=== PATIENT | female | born 1970 | race African-American/Black ===

== ENCOUNTER 2019-03-10 12:28 | Emergency (ER) | payer MEDICAID ==
[~2019-03-10] VITALS: Ht 177.8 cm; Wt 88.5 kg
[2019-03-10 12:29] VITALS: BP 144/91
--- NOTE | 2019-03-10 12:35 | NUR ---
ED Nurse Note: Patient walked into ED from home accompanied with her partner, due to "alcohol withrawal" symptoms, patient appears to be shaky, reports chest pain patient reports the last time she drank was this morning, she had 1 cup of wine. patient is alert awake x4 ambulatory steady gait, breathing unlabored and even.
[2019-03-10] MEDS ORDERED: XANAX0.25 MG ORAL (12:40)
--- NOTE | 2019-03-10 13:08 | Emergency Room Report ---
History of Present Illness General Chief Complaint: General Complaint Source: Patient Present Illness HPI 48-year-old female presents to the emergency department complaining of alcohol withdrawal symptoms. Patient reports that she drinks alcohol regularly describing 3-4 bottles of wine daily x2 weeks. Patient reports prior to that she was sober for approximately 5 to 7 months when she self detoxed from alcohol dependency for prior longer duration of drinking. Patient reports need for hospitalization upon detox as well as history of seizures. Patient denies heart or liver conditions. Warts last glass of wine was 10 AM this morning. Psychiatric history includes anxiety she denies SI/HI, depression, dale, hallucinations, delusions. Reports her current symptoms consist of heightened anxiety, dizziness, hot and cold flashes and intermittent palpitations with chest tightness. States that she is regularly prescribed Xanax as needed for her anxiety symptoms. She is currently out of that medication. Pt. is accompanied by her partner whom endorses the details of HPI and was caring for pt. when she self d/c'd cold turkey 7 months ago. Pt. denies ever going through a detox program or attending support groups. Pt. takes Metoprolol for HTN. Allergies: Coded Allergies: No Known Allergies (Unverified , 03/10/19) Patient History Past Medical History: see triage record, HTN Past Surgical History: none Pertinent Family History: none Social History: Reports: alcohol use - ETOH Dependence Last Menstrual Period: unk-premenopausal Now: No Reviewed Nursing Documentation: PMH: Agreed; PSxH: Agreed Nursing Documentation-PM Past Medical History: No History, Except For History Of Psychiatric Problem: Yes - etoh abuse Review of Systems All Other Systems: negative except mentioned in HPI Physical Exam Vital Signs Date Time Temp Pulse Resp B/P (MAP) Pulse Ox O2 Delivery O2 Flow Rate FiO2 03/10/19 12:29 99.3 72 18 144/91 (108) 98 Room Air Sp02 EP Interpretation: reviewed, normal General Appearance: alert, GCS 15, non-toxic, mild distress Head: normocephalic, atraumatic Eyes: bilateral eye normal inspection, bilateral eye PERRL ENT: hearing grossly normal, normal voice Neck: full range of motion Respiratory: chest non-tender, lungs clear, normal breath sounds, no respiratory distress, no wheezing, speaking full sentences Cardiovascular #1: regular rate, rhythm, normal capillary refill Gastrointestinal: normal bowel sounds, non tender, soft Genitourinary: normal inspection Musculoskeletal: back normal, gait/station normal, normal range of motion, non- tender Neurologic: alert, oriented x3, responsive, motor strength/tone normal, sensory intact, speech normal, grossly normal Psychiatric: judgement/insight normal, no suicidal/homicidal ideation, no delusions, anxious, other - Pt. is restless. Skin: no rash, warm/dry Lymphatic: no adenopathy Medical Decision Making PA Attestation Dr. Mercer is my supervising Physician whom patient management has been discussed with. Diagnostic Impression: Primary Impression: EtOH dependence Qualified Codes: F10.20 - Alcohol dependence, uncomplicated Additional Impression: Alcohol withdrawal syndrome Qualified Codes: F10.230 - Alcohol dependence with withdrawal, uncomplicated ER Course 48-year-old female presents to the emergency department complaining of alcohol withdrawal symptoms. Patient reports that she drinks alcohol regularly describing 3-4 bottles of wine daily x2 weeks. Patient reports prior to that she was sober for approximately 5 to 7 months when she self detoxed from alcohol dependency for prior longer duration of drinking. Patient reports need for hospitalization upon detox as well as history of seizures. Patient denies heart or liver conditions. Warts last glass of wine was 10 AM this morning. Psychiatric history includes anxiety she denies SI/HI, depression, dale, hallucinations, delusions. Reports her current symptoms consist of heightened anxiety, dizziness, hot and cold flashes and intermittent palpitations with chest tightness. States that she is regularly prescribed Xanax as needed for her anxiety symptoms. She is currently out of that medication. Pt. is accompanied by her partner whom endorses the details of HPI and was caring for pt. when she self d/c'd cold turkey 7 months ago. Pt. denies ever going through a detox program or attending support groups. Ddx considered but are not limited to ETOH, Trauma, Syncope, dementia, OD, delirium tremens to name a few Vital signs: are WNL, pt. is afebrile H&PE are most consistent with ETOH dependency with abrupt d/c. CIWA of 11. ORDERS: -CBC: Pancytopenia -CMP: Electrolytes okay, normal renal function, mild elevation in AST at 40 -ETOH serum: 48 -UDS: Negative ED INTERVENTIONS: -25 mg Librium p.o. Reassessment patient reports her symptoms have resolved. re-calculated CIWA score of 6 During visit pt. has responsible constitution party (partner) who is in the medical field and endorses that she will stay with the pt. at home and observe her and help dispense medication as needed. Both pt. and responsible constitution party agree therapy such as AA is necessary and agree to try going. They are given a copy of local medical detox programs and outpatient detox programs as well as AA information. DISCHARGE: At this time pt. is stable for d/c to home. Will provide printed patient care instructions, and any necessary prescriptions. Care plan and follow up instructions have been discussed with the patient prior to discharge. Labs Test 03/10/19 13:20 White Blood Count 4.4 K/UL (4.8-10.8) Red Blood Count 4.46 M/UL (4.20-5.40) Hemoglobin 10.9 G/DL (12.0-16.0) Hematocrit 36.8 % (37.0-47.0) Mean Corpuscular Volume 82 FL (80-99) Mean Corpuscular Hemoglobin 24.4 PG (27.0-31.0) Mean Corpuscular Hemoglobin Concent 29.6 G/DL (32.0-36.0) Red Cell Distribution Width 19.3 % (11.6-14.8) Platelet Count 305 K/UL (150-450) Mean Platelet Volume 4.7 FL (6.5-10.1) Neutrophils (%) (Auto) 47.5 % (45.0-75.0) Lymphocytes (%) (Auto) 36.4 % (20.0-45.0) Monocytes (%) (Auto) 12.0 % (1.0-10.0) Eosinophils (%) (Auto) 1.6 % (0.0-3.0) Basophils (%) (Auto) 2.5 % (0.0-2.0) Urine HCG, Qualitative Negative (NEGATIVE) Sodium Level 145 MMOL/L (136-145) Potassium Level 4.7 MMOL/L (3.5-5.1) Chloride Level 107 MMOL/L (98-107) Carbon Dioxide Level 25 MMOL/L (21-32) Anion Gap 14 mmol/L (5-15) Blood Urea Nitrogen 12 mg/dL (7-18) Creatinine 0.9 MG/DL (0.55-1.30) Estimat Glomerular Filtration Rate > 60 mL/min (>60) Glucose Level 98 MG/DL (74-106) Calcium Level 8.9 MG/DL (8.5-10.1) Total Bilirubin 0.5 MG/DL (0.2-1.0) Aspartate Amino Transf (AST/SGOT) 40 U/L (15-37) Alanine Aminotransferase (ALT/SGPT) 29 U/L (12-78) Alkaline Phosphatase 53 U/L (46-116) Total Protein 8.0 G/DL (6.4-8.2) Albumin 3.6 G/DL (3.4-5.0) Globulin 4.4 g/dL Albumin/Globulin Ratio 0.8 (1.0-2.7) Urine Opiates Screen Negative (NEGATIVE) Urine Barbiturates Screen Negative (NEGATIVE) Phencyclidine (PCP) Screen Negative (NEGATIVE) Urine Amphetamines Screen Negative (NEGATIVE) Urine Benzodiazepines Screen Negative (NEGATIVE) Urine Cocaine Screen Negative (NEGATIVE) Urine Marijuana (THC) Screen Negative (NEGATIVE) Serum Alcohol 48 mg/dL EKG Diagnostic Results EP Interpretation: Dr. Mercer Rate: normal - 61 BPM Rhythm: NSR ST Segments: no acute changes ASA given to the pt in ED: No PA Scribe Text This Interpretation was scribed by FRANKO Muller. Last Vital Signs Date Time Temp Pulse Resp B/P (MAP) Pulse Ox O2 Delivery O2 Flow Rate FiO2 03/10/19 12:51 72 18 Room Air 03/10/19 12:29 99.3 144/91 98 Disposition: HOME, SELF-CARE Condition: Stable Scripts Chlordiazepoxide Hcl* (LIBRIUM*) 10 Mg Capsule 10 MG ORAL PRN PRN for ETOH symptoms, #11 CAP 0 Refills Longer-acting benzodiazepine: Chlordiazepoxide (Librium) Taper Day 1 - 10 mg every 6 to 12 hours (only if having withdraw symptoms) Day 2 - 10 mg every 6 hours (only if having withdraw symptoms) Day 3 - 10 mg twice a day Day 4- 10 mg at Night DO NOT TAKE IF ALCOHOL IS IN YOUR SYSTEM Prov: Chelo Muller 03/10/19 Departure Forms: Return to Work Return to Work Date: Mar 16, 2019 Work Restrictions: None Other Restrictions: May return Sooner if Symptoms have resolved. Return to Full Activity: Mar 16, 2019 Patient Instructions: Chlordiazepoxide capsules Additional Instructions: Longer-acting benzodiazepine: Chlordiazepoxide (Librium) Taper Day 1 - 25 mg every 6 to 12 hours (only if having withdraw symptoms) Day 2 - 25 mg every 6 hours (only if having withdraw symptoms) Day 3 - 25 mg twice a day Day 4- 25mg at Night Contact provided resources for group support, therapy and if more formal institution is required. Discharge DO NOT TAKE IF ALCOHOL IS IN YOUR SYSTEM Take medications as directed. Follow up with a Primary Care Provider in 3-5 days, even if your symptoms have resolved. --Please review list of primary care clinics, if you do not already have a primary care provider Return sooner to ED if new symptoms occur, or current symptoms become worse. Do not drink alcohol, drive, or operate heavy machinery while taking LIBRIUM as this may cause drowsiness. - Please note that this Emergency Department Report was dictated using Satellogiccask maker technology software, occasionally this can lead to erroneous entry secondary to interpretation by the dictation equipment. Chelo Muller Mar 10, 2019 13:08
[2019-03-10] MEDS ORDERED: chlordiazePOXIDE 25mg Cap ORAL ONE (13:15)
[2019-03-10 13:36] LABS: BASOPHILS % (AUTO) 2.5 % (0.0-2.0); EOSINOPHILS % (AUTO) 1.6 % (0.0-3.0); HEMATOCRIT 36.8 % (37.0-47.0); HEMOGLOBIN 10.9 G/DL (12.0-16.0); LYMPHOCYTES % (AUTO) 36.4 % (20.0-45.0); MEAN CORPUSCULAR VOLUME 82 FL (80-99); NEUTROPHILS % (AUTO) 47.5 % (45.0-75.0); PLATELET COUNT 305 K/UL (150-450); RED BLOOD COUNT 4.46 M/UL (4.20-5.40); RED CELL DISTRIBUTION WIDTH 19.3 % (11.6-14.8); WHITE BLOOD COUNT 4.4 K/UL (4.8-10.8)
[2019-03-10 13:49] LABS: ANION GAP 14 mmol/L (5-15); BLOOD UREA NITROGEN 12 mg/dL (7-18); CALCIUM 8.9 MG/DL (8.5-10.1); CARBON DIOXIDE 25 MMOL/L (21-32); CHLORIDE 107 MMOL/L (98-107); CREATININE 0.9 MG/DL (0.55-1.30); POTASSIUM 4.7 MMOL/L (3.5-5.1); SODIUM 145 MMOL/L (136-145)
[2019-03-10 13:53] LABS: ALANINE AMINOTRANSFERASE 29 U/L (12-78); ALBUMIN 3.6 G/DL (3.4-5.0); ALBUMIN/GLOBULIN RATIO 0.8 (1.0-2.7); ALKALINE PHOSPHATASE 53 U/L (46-116)
[2019-03-10 14:04] LABS: ASPARTATE AMINO TRANSFERASE 40 U/L (15-37)
[2019-03-10 14:35] LABS: BILIRUBIN,TOTAL 0.5 MG/DL (0.2-1.0)
[2019-03-10] MEDS ORDERED: LIBRIUM10 MG ORAL (15:18)
[2019-03-10 15:34] VITALS: BP 144/91
--- NOTE | 2019-03-10 15:35 | NUR ---
ER DISCHARGE NOTE: Patient is cleared to be discharged per RANDA LITTLEJOHN, pt is aox4, on room air, with stable vital signs. pt was given dc and prescription instructions, pt was able to verbalize understanding, pt id band and iv site removed without complications. pt is able to ambulate with steady gait. pt took all belongings.
--- NOTE | 2019-03-11 11:32 | Cardiology Report ---
APPROVED REPORT EKG Measurement Heart [id number] Normal sinus rhythm Normal ECG
== END 2019-03-10 15:34 | disposition home or self-care (01) ==
LOC: EMR 13:35
DX: F10.230 Alcohol dependence with withdrawal, uncomplicated (principal); I10 Essential (primary) hypertension; F41.9 Anxiety disorder, unspecified; D61.818 Other pancytopenia
CPT/HCPCS: 36415; 80053; 80307; 80329; 81025; 85025; 93005; 96360; 99284

== ENCOUNTER 2019-04-15 18:49 | Emergency (ER) | payer MEDICAID ==
[~2019-04-15] VITALS: Ht 177.8 cm; Wt 86.2 kg
[~2019-04-15 18:49] MED LIST: LIBRIUM10 MG ORAL; XANAX0.25 MG ORAL
[2019-04-15 19:00] VITALS: BP 133/91
--- NOTE | 2019-04-15 19:00 | NUR ---
ED Nurse Note: Manuel walked into ED wanting to get a referral for a detox program, patient does not have any pain at time of arrival. patient admits that she is part of an alcoholic anonymous and just drank recently. patient admits to drinking a bottle of tequila 2 days ago. will continue to monitor
[2019-04-15] MEDS ORDERED: METOPROLOL SUCC25 MG ORAL (19:02)
--- NOTE | 2019-04-15 19:53 | Emergency Room Report ---
History of Present Illness General Chief Complaint: General Complaint Source: Patient Present Illness HPI 48 YO Female presents to the ED c/o requesting alcohol detox program resource information, and experiencing nausea and anxiousness after d/c'ing ETOH intake this AM. Pt. w. hx of ETOH dependence .Pt. relapsed 2 days ago at a house warming green party. Pt. denies SI/ HI, hallucinations, agitation, or seizures. Pt. reports drinking 2 bottles of tequila x 2 day binge. Denies drug use. Pt. denies fevers or chills. Denies recent head injury. Denies CP, Palpitations, LOC, AMS, dizziness, Changes in Vision, Sensation, paresthesias, or a sudden severe headache. She denies pain. Denies abdominal symptoms other than nausea. Allergies: Coded Allergies: No Known Allergies (Unverified , 03/10/19) Patient History Past Medical History: see triage record Past Surgical History: none Pertinent Family History: none Last Menstrual Period: 8 months ago Now: No Reviewed Nursing Documentation: PMH: Agreed; PSxH: Agreed Nursing Documentation-PMH Past Medical History: No History, Except For Review of Systems All Other Systems: negative except mentioned in HPI Physical Exam Vital Signs Date Time Temp Pulse Resp B/P (MAP) Pulse Ox O2 Delivery O2 Flow Rate FiO2 04/15/19 18:58 98.2 63 16 133/91 (105) 97 Room Air Sp02 EP Interpretation: reviewed, normal General Appearance: no apparent distress, alert, GCS 15, non-toxic Head: normocephalic, atraumatic Eyes: bilateral eye normal inspection, bilateral eye PERRL ENT: hearing grossly normal, normal voice Neck: full range of motion Respiratory: chest non-tender, lungs clear, normal breath sounds, no wheezing, speaking full sentences Cardiovascular #1: regular rate, rhythm, normal capillary refill Gastrointestinal: normal bowel sounds, non tender, soft, non-distended, no guarding Musculoskeletal: back normal, gait/station normal, normal range of motion, non- tender Neurologic: alert, oriented x3, responsive, motor strength/tone normal, sensory intact, normal gait, speech normal, grossly normal Psychiatric: normal inspection, judgement/insight normal, memory normal, no suicidal/homicidal ideation, no delusions, anxious - very mild anxiousness/ faintly palpable tremor. Skin: no rash Lymphatic: no adenopathy Medical Decision Making PA Attestation Dr. Baltazar is my supervising Physician whom patient management has been discussed with. Diagnostic Impression: Primary Impression: Encounter for medical screening examination Additional Impression: Nausea ER Course 48 YO Female presents to the ED c/o requesting alcohol detox program resource information, and experiencing nausea and anxiousness after d/c'ing ETOH intake this AM. Pt. w. hx of ETOH dependence .Pt. relapsed 2 days ago at a house warming green party. Pt. denies SI/ HI, hallucinations, agitation, or seizures. Pt. reports drinking 2 bottles of tequila x 2 day binge. Denies drug use. Pt. denies fevers or chills. Denies recent head injury. Denies CP, Palpitations, LOC, AMS, dizziness, Changes in Vision, Sensation, paresthesias, or a sudden severe headache. She denies pain. Denies abdominal symptoms other than nausea. Ddx considered but are not limited to acute w/d, psychosis or acute psychiatric emergency, intoxication, OD, SI/HI just to name a few. Vital signs: are WNL, pt. is afebrile - CIWA : 6 H&PE are most consistent with normal MSE, mild anxiousness no significant signs of acute w/d. pt. CIWA of 6 does not warrant more emergent interventions. Pt. is non-toxic in appearance. A& O x 4, no SI/HI ORDERS: none required at this time, the diagnosis is clinical ED INTERVENTIONS: -Zofran PO -D/w pt. will give her alcohol detox program resources again. D/w pt.'s partner symptoms that would indicate prompt return to the ED. DISCHARGE: At this time pt. is stable for d/c to home. Will provide printed patient care instructions, and any necessary prescriptions. Care plan and follow up instructions have been discussed with the patient prior to discharge. Last Vital Signs Date Time Temp Pulse Resp B/P (MAP) Pulse Ox O2 Delivery O2 Flow Rate FiO2 04/15/19 18:58 98.2 63 16 133/91 (105) 97 Room Air Disposition: HOME, SELF-CARE Condition: Stable Scripts Ondansetron Odt* (ZOFRAN ODT*) 4 Mg Tab.rapdis 4 MG BC EVERY 8 HOURS PRN for Nausea & Vomiting, #10 TAB 0 Refills Prov: Chelo Muller 04/15/19 Departure Forms: Return to Work Return to Work Date: Apr 19, 2019 Work Restrictions: None Return to Full Activity: Apr 19, 2019 Patient Instructions: Alcohol Use Disorder Additional Instructions: Take medications as directed. Follow up with a DETOX FACILITY and a Primary Care Provider within 3 days, even if your symptoms have resolved. - Return sooner to ED if new symptoms occur, or current symptoms become worse. - Please note that this Emergency Department Report was dictated using Ampliencestraddle buggy operator technology software, occasionally this can lead to erroneous entry secondary to interpretation by the dictation equipment. Chelo Muller Apr 15, 2019 19:53
[2019-04-15] MEDS ORDERED: ONDANSETRON ODT4 MG BC (19:56)
[2019-04-15 20:15] VITALS: BP 125/88
--- NOTE | 2019-04-15 20:15 | NUR ---
ER DISCHARGE NOTE: Patient is cleared to be discharged per ERMD, pt is aox4, on room air, with stable vital signs. pt was given dc instructions, pt was able to verbalize understanding, pt id band removed without complications. pt is able to ambulate with steady gait. pt took all belongings. Patient was provided a list of detox centers, patient is accompanied by friend
== END 2019-04-15 20:15 | disposition home or self-care (01) ==
LOC: EMR 20:00
DX: R11.0 Nausea (principal); F10.20 Alcohol dependence, uncomplicated
CPT/HCPCS: 99282

== ENCOUNTER 2020-01-19 18:22 | Emergency (ER) | payer MEDICAID ==
[~2020-01-19] VITALS: Ht 177.8 cm; Wt 86.2 kg
[~2020-01-19 18:22] MED LIST changes: +METOPROLOL SUCC25 MG ORAL; +ONDANSETRON ODT4 MG BC
[2020-01-19] MEDS ORDERED: METOPROLOL SUCC50 MG ORAL (18:36)
[2020-01-19] MEDS ORDERED: chlordiazePOXIDE 25mg Cap ORAL ONE (19:15)
[2020-01-19 19:26] LABS: BASOPHILS % (AUTO) 2.5 % (0.0-2.0); HEMOGLOBIN 12.7 G/DL (12.0-16.0); LYMPHOCYTES % (AUTO) 40.2 % (20.0-45.0); MEAN CORPUSCULAR VOLUME 98 FL (80-99); MONOCYTES % (AUTO) 9.5 % (1.0-10.0); NEUTROPHILS % (AUTO) 46.9 % (45.0-75.0); PLATELET COUNT 205 K/UL (150-450); RED BLOOD COUNT 4.18 M/UL (4.20-5.40); RED CELL DISTRIBUTION WIDTH 16.9 % (11.6-14.8); WHITE BLOOD COUNT 5.6 K/UL (4.8-10.8)
[2020-01-19 19:36] LABS: ANION GAP 11 mmol/L (5-15); BLOOD UREA NITROGEN 12 mg/dL (7-18); CALCIUM 7.9 MG/DL (8.5-10.1); CARBON DIOXIDE 26 MMOL/L (21-32); CHLORIDE 107 MMOL/L (98-107); POTASSIUM 4.4 MMOL/L (3.5-5.1); SODIUM 144 MMOL/L (136-145)
[2020-01-19 19:41] LABS: ALANINE AMINOTRANSFERASE 29 U/L (12-78); ALBUMIN 3.9 G/DL (3.4-5.0); ALKALINE PHOSPHATASE 82 U/L (46-116); ASPARTATE AMINO TRANSFERASE 38 U/L (15-37); BILIRUBIN,TOTAL 0.2 MG/DL (0.2-1.0)
[2020-01-19 19:52] VITALS: BP 108/80
[2020-01-19] MEDS ORDERED: LORazepam Inj 2mg/ml 1ml IV ONE (20:15)
[2020-01-19] MEDS ORDERED: LIBRIUM25 MG ORAL (20:32)
[2020-01-19 20:37] VITALS: BP 108/80
--- NOTE | 2020-01-19 22:03 | Emergency Room Report ---
History of Present Illness General Chief Complaint: Alcohol Intoxication Source: Patient Present Illness HPI 49-year-old female presents for evaluation. States that she is going through alcohol withdrawal. States she has been drinking every day for several days now. Last drink was this morning. States she feels shaky. Denies nausea or vomiting. Denies abdominal pain. Denies hearing voices. Denies SI or HI. No other aggravating relieving factors. Denies any other associated symptoms Allergies: Coded Allergies: No Known Allergies (Unverified , 03/10/19) COVID-19 Screening Contact w/high risk pt: No Experienced COVID-19 symptoms?: No COVID-19 Testing performed HOMEOPATHIC DOCTOR: No - 2 days ago COVID-19 Screening: Negative COVID-19 COVID-19 Testing Source: SENIOR WATER/WASTEWATER ENGINEER swab Patient History Past Medical History: psych hx Past Surgical History: none Pertinent Family History: none Social History: Reports: alcohol use; Denies: smoking, drug use Last Menstrual Period: premenopause Now: No Immunizations: UTD Reviewed Nursing Documentation: PMH: Agreed; PSxH: Agreed Nursing Documentation-PMH Past Medical History: No History, Except For Hx Cardiac Problems: Yes - alcohol abuse Hx Hypertension: No Hx Pacemaker: No Hx Asthma: No Hx COPD: No Hx Diabetes: No Hx Cancer: No Hx Gastrointestinal Problems: No Hx Dialysis: No History Of Psychiatric Problem: Yes - Anxiety Hx Neurological Problems: No Hx Cerebrovascular Accident: No Hx Seizures: Yes Review of Systems All Other Systems: negative except mentioned in HPI Physical Exam Vital Signs Date Time Temp Pulse Resp B/P (MAP) Pulse Ox O2 Delivery O2 Flow Rate FiO2 01/18/ 18:28 98.8 85 14 108/80 (89) 95 Room Air Sp02 EP Interpretation: reviewed, normal General Appearance: no apparent distress, alert, GCS 15, non-toxic Head: normocephalic, atraumatic Eyes: bilateral eye normal inspection, bilateral eye PERRL ENT: hearing grossly normal, normal pharynx, no angioedema, normal voice Neck: full range of motion, supple/symm/no masses Respiratory: chest non-tender, lungs clear, normal breath sounds, speaking full sentences Cardiovascular #1: regular rate, rhythm, no edema Cardiovascular #2: 2+ carotid (R), 2+ carotid (L), 2+ radial (R), 2+ radial (L) , 2+ dorsalis pedis (R), 2+ dorsalis pedis (L) Gastrointestinal: normal bowel sounds, non tender, soft, non-distended, no guarding, no rebound Rectal: deferred Genitourinary: normal inspection, no CVA tenderness Musculoskeletal: back normal, normal range of motion, gait/station normal, non- tender Neurologic: alert, motor strength/tone normal, oriented x3, sensory intact, responsive, speech normal Psychiatric: judgement/insight normal, memory normal, no suicidal/homicidal ideation, no delusions, anxious Reflexes: 3+ bicep (R), 3+ bicep (L), 3+ tricep (R), 3+ tricep (L), 3+ knee (R) , 3+ knee (L) Lymphatic: no adenopathy Medical Decision Making Diagnostic Impression: Primary Impression: Alcohol withdrawal Qualified Codes: F10.239 - Alcohol dependence with withdrawal, unspecified ER Course Hospital Course 49-year-old female presents ED complaining of shaking, stating she is in withdrawal. Chronic history of alcohol use Differential diagnoses include: Alcohol intoxication, drug abuse, opioid withdrawal, alcohol withdrawal, dehydration, drug seeking behavior Clinical course Patient placed on stretcher. On dental secretary. After initial history and physical I ordered labs, IV fluids, librium Labs reviewed-electrolytes okay, hemoglobin/hematocrit stable, no leukocytosis, alcohol level 276, aspirin/Tylenol levels negative given ativan. On reassessment symptoms improved. Patient states she feels better. No signs of acute withdrawal or DTs. patient can be safely discharged to home Provide prescription for Librium. States that she is already enrolled in detox program. Safe for discharge for close outpatient follow-up i. I feel this is a highly complex case requiring extensive working including EKG/Rhythm strip, Xray/CT/US, Blood/urine lab work, repeat exams while in ED, and administration of strong opiates/narcotics for pain control, admission to hospital or close patient follow up. Diagnosis - alcohol withdrawal Stable and discharged to home with prescription for Librium. Followup with PMD. Return to ED if symptoms recur or worsen Labs Test 01/19/20 19:10 White Blood Count 5.6 K/UL (4.8-10.8) Red Blood Count 4.18 M/UL (4.20-5.40) Hemoglobin 12.7 G/DL (12.0-16.0) Hematocrit 41.0 % (37.0-47.0) Mean Corpuscular Volume 98 FL (80-99) Mean Corpuscular Hemoglobin 30.4 PG (27.0-31.0) Mean Corpuscular Hemoglobin Concent 31.0 G/DL (32.0-36.0) Red Cell Distribution Width 16.9 % (11.6-14.8) Platelet Count 205 K/UL (150-450) Mean Platelet Volume 5.8 FL (6.5-10.1) Neutrophils (%) (Auto) 46.9 % (45.0-75.0) Lymphocytes (%) (Auto) 40.2 % (20.0-45.0) Monocytes (%) (Auto) 9.5 % (1.0-10.0) Eosinophils (%) (Auto) 1.0 % (0.0-3.0) Basophils (%) (Auto) 2.5 % (0.0-2.0) Sodium Level 144 MMOL/L (136-145) Potassium Level 4.4 MMOL/L (3.5-5.1) Chloride Level 107 MMOL/L (98-107) Carbon Dioxide Level 26 MMOL/L (21-32) Anion Gap 11 mmol/L (5-15) Blood Urea Nitrogen 12 mg/dL (7-18) Creatinine 1.0 MG/DL (0.55-1.30) Estimat Glomerular Filtration Rate > 60 mL/min (>60) Glucose Level 86 MG/DL (74-106) Calcium Level 7.9 MG/DL (8.5-10.1) Total Bilirubin 0.2 MG/DL (0.2-1.0) Aspartate Amino Transf (AST/SGOT) 38 U/L (15-37) Alanine Aminotransferase (ALT/SGPT) 29 U/L (12-78) Alkaline Phosphatase 82 U/L (46-116) Total Protein 7.9 G/DL (6.4-8.2) Albumin 3.9 G/DL (3.4-5.0) Globulin 4.0 g/dL Albumin/Globulin Ratio 1.0 (1.0-2.7) Serum Alcohol 276 mg/dL Last Vital Signs Date Time Temp Pulse Resp B/P (MAP) Pulse Ox O2 Delivery O2 Flow Rate FiO2 01/19/20 20:37 98.8 87 14 108/80 95 Room Air Status: improved Disposition: HOME, SELF-CARE Condition: Stable Scripts Chlordiazepoxide (Chlordiazepoxide HCl) 25 Mg Capsule 25 MG ORAL THREE TIMES A DAY, #15 CAP 0 Refills Prov: Alistair Turpin MD 01/19/20 Referrals: NOT CHOSEN IPA/,REFERRING (PCP) Patient Instructions: Alcohol Use Disorder Alistair Turpin MD Jan 19, 2020 22:03
== END 2020-01-19 20:30 | disposition home or self-care (01) ==
LOC: EMR 18:58
DX: F10.239 Alcohol dependence with withdrawal, unspecified (principal); F41.9 Anxiety disorder, unspecified
CPT/HCPCS: 36415; 80053; 85025; 96361; 96374; G0480; J7030; Z7502; 99284

== ENCOUNTER 2020-03-15 19:48 | Emergency (ER) | payer MEDICAID ==
[~2020-03-15] VITALS: Ht 177.8 cm; Wt 86.2 kg
[~2020-03-15 19:48] MED LIST changes: +LIBRIUM25 MG ORAL; +METOPROLOL SUCC50 MG ORAL
[2020-03-15 20:01] VITALS: BP 122/83
[2020-03-15] MEDS ORDERED: Thiamine HCl 100 MG in D5W 55 ML IV ONE (20:45)
--- NOTE | 2020-03-15 21:00 | Emergency Room Report ---
History of Present Illness General Chief Complaint: Alcohol Intoxication Source: Patient Present Illness HPI The patient is here for alcohol withdrawal. She fell off the wagon several days ago. She feels anxious and has the shakes when she is not drinking. She is not been eating solid food very well but has been drinking alcohol without any vomiting, no hematemesis or vomiting blood and no melena. There is no diarrhea. She denies any abdominal pain. She denies suicidal or homicidal ideation. She is disappointed in herself that she has not been able to control her alcohol use. She states she has not benefited from attending alcoholics anonymous or 12-step programs. She does have a therapist. She states that she has had withdrawal seizures in the past. It is been a long time since she had one. Patient was seen here January 18 and treated with Ativan and Librium. 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 She states she used full PPE in doing so. No fevers, chills, sore throat, chest pain, palpitations, nausea, vomiting, diarrhea, dysuria, abdominal pain, shortness of breath, joint pain, rashes, visual changes, dizziness, headache. Her menstruation is irregular at this time. 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 Last Menstrual Period: premenopausal Reviewed Nursing Documentation: PMH: Agreed; PSxH: Agreed Nursing Documentation-PMH Hx Cardiac Problems: Yes - alcohol abuse Hx Hypertension: No Hx Pacemaker: No Hx Asthma: No Hx COPD: No Hx Diabetes: No Hx Cancer: No Hx Gastrointestinal Problems: No Hx Dialysis: No Hx Neurological Problems: No Hx Cerebrovascular Accident: No Hx Seizures: Yes Review of Systems All Other Systems: negative except mentioned in HPI Physical Exam Vital Signs Date Time Temp Pulse Resp B/P (MAP) Pulse Ox O2 Delivery O2 Flow Rate FiO2 03/15/20 19:52 98.8 95 16 122/83 (96) 99 Room Air Sp02 EP Interpretation: reviewed, normal General Appearance: well appearing, no apparent distress, GCS 15 Head: normocephalic Eyes: bilateral eye PERRL, bilateral eye EOMI, bilateral eye Scleral Injection ENT: normal pharynx, moist mucus membranes Neck: supple Respiratory: lungs clear, normal breath sounds Cardiovascular #1: regular rate, rhythm Cardiovascular #2: 2+ radial (R) Gastrointestinal: normal inspection, normal bowel sounds, non tender, no mass, non-distended Musculoskeletal: back normal, normal range of motion, gait/station normal Neurologic: alert, oriented x3 Psychiatric: no suicidal/homicidal ideation, other Skin: no rash, warm/dry Medical Decision Making Diagnostic Impression: Primary Impression: Alcohol withdrawal Qualified Codes: F10.230 - Alcohol dependence with withdrawal, uncomplicated ER Course Patient presents requesting a in alcohol withdrawal. Differential includes acute intoxication, alcohol withdrawal, anxiety, denial, electrolyte imbalance amongst others. As she has had seizures in the past there may be some risk for withdrawal seizure at this time. Patient evaluated with labs. Patient treated with IV hydration and and thiamine. Consideration for use of Ativan also. CIWA = 2. Patient with increased anxiety and shakiness. Ativan administered. Labs significant for normal CBC and CMP. Blood alcohol is positive. Urine not produced. Resting and improved with Ativan and IV hydration. RN reports tachycardia. EKG and chest x-ray ordered. Normal sinus rhythm with possible left atrial enlargement otherwise normal. Patient not tachycardic on EKG. chest x-ray normal. Discussed results with patient. Discussed treatment options. She is adamant she does not want to go to rehab or any 12-step program.. She does have contact with her therapist and plans to call the therapist tomorrow. She is adamant she is able to stop alcohol use on her own with the help of her therapist. Discussed treatment plan with patient. No evidence of DTs. No seizure activity and patient without tremor at this time. Patient stable for outpatient observation and treatment. Laboratory Tests Test 03/15/20 21:10 White Blood Count 5.5 K/UL (4.8-10.8) Red Blood Count 4.52 M/UL (4.20-5.40) Hemoglobin 13.8 G/DL (12.0-16.0) Hematocrit 44.0 % (37.0-47.0) Mean Corpuscular Volume 97 FL (80-99) Mean Corpuscular Hemoglobin 30.4 PG (27.0-31.0) Mean Corpuscular Hemoglobin Concent 31.3 G/DL (32.0-36.0) L Red Cell Distribution Width 15.0 % (11.6-14.8) H Platelet Count 234 K/UL (150-450) Mean Platelet Volume 5.9 FL (6.5-10.1) L Neutrophils (%) (Auto) 49.9 % (45.0-75.0) Lymphocytes (%) (Auto) 40.0 % (20.0-45.0) Monocytes (%) (Auto) 6.9 % (1.0-10.0) Eosinophils (%) (Auto) 0.9 % (0.0-3.0) Basophils (%) (Auto) 2.3 % (0.0-2.0) H Prothrombin Time 10.3 SEC (9.30-11.50) Prothrombin Time INR 0.9 (0.9-1.1) Sodium Level 144 MMOL/L (136-145) Potassium Level 4.5 MMOL/L (3.5-5.1) Chloride Level 106 MMOL/L (98-107) Carbon Dioxide Level 26 MMOL/L (21-32) Anion Gap 12 mmol/L (5-15) Blood Urea Nitrogen 14 mg/dL (7-18) Creatinine 1.0 MG/DL (0.55-1.30) Estimated Glomerular Filtration Rate > 60 mL/min (>60) Glucose Level 88 MG/DL (74-106) Calcium Level 9.0 MG/DL (8.5-10.1) Phosphorus Level 4.4 MG/DL (2.5-4.9) Magnesium Level 2.5 MG/DL (1.8-2.4) H Total Bilirubin 0.3 MG/DL (0.2-1.0) Aspartate Amino Transferase (AST) 34 U/L (15-37) Alanine Aminotransferase (ALT) 28 U/L (12-78) Alkaline Phosphatase 73 U/L (46-116) Total Creatine Kinase 166 U/L (26-308) Total Protein 8.5 G/DL (6.4-8.2) H Albumin 3.9 G/DL (3.4-5.0) Globulin 4.6 g/dL Albumin/Globulin Ratio 0.8 (1.0-2.7) L Salicylates Level 2.1 ug/mL (2.8-20) L Acetaminophen Level < 2 MCG/ML (10-30) L Serum Alcohol 245 mg/dL EKG Diagnostic Results Rate: normal Rhythm: NSR ST Segments: no acute changes Rhythm Strip Diag. Results EP Interpretation: yes Rhythm: NSR, no PVC's, no ectopy Chest X-Ray Diagnostic Results Chest X-Ray Diagnostic Results : Chest X-Ray Ordered: Yes # of Views/Limited/Complete: 1 View Indication: Other EP Interpretation: Yes Interpretation: no consolidation, no effusion, no pneumothorax Impression: No acute disease Electronically Signed by: Electronically signed by Merrill Pacheco MD Last Vital Signs Date Time Temp Pulse Resp B/P (MAP) Pulse Ox O2 Delivery O2 Flow Rate FiO2 03/16/20 00:45 98.8 92 18 109/76 95 Room Air Status: improved Disposition: HOME, SELF-CARE Condition: Improved Scripts Multivitamin With Minerals (MULTIVITAMINS WITH MINERALS*) 1 Each Tablet 1 TAB ORAL DAILY, #30 TAB Prov: Merrill Pacheco MD 03/16/20 Chlordiazepoxide (Chlordiazepoxide HCl) 25 Mg Capsule 25 MG ORAL THREE TIMES A DAY, #15 CAP 0 Refills Prov: Merrill Pacheco MD 03/16/20 Referrals: NOT CHOSEN IPA/,REFERRING (PCP) Merrill Pacheco MD Mar 15, 2020 21:00
[2020-03-15 21:31] LABS: BASOPHILS % (AUTO) 2.3 % (0.0-2.0); EOSINOPHILS % (AUTO) 0.9 % (0.0-3.0); HEMOGLOBIN 13.8 G/DL (12.0-16.0); MEAN CORPUSCULAR VOLUME 97 FL (80-99); MONOCYTES % (AUTO) 6.9 % (1.0-10.0); NEUTROPHILS % (AUTO) 49.9 % (45.0-75.0); PLATELET COUNT 234 K/UL (150-450); RED BLOOD COUNT 4.52 M/UL (4.20-5.40); WHITE BLOOD COUNT 5.5 K/UL (4.8-10.8)
[2020-03-15 21:39] LABS: INR 0.9 (0.9-1.1)
[2020-03-15] MEDS ORDERED: LORazepam Inj 2mg/ml 1ml IV ONE (21:45)
[2020-03-15 21:46] LABS: ANION GAP 12 mmol/L (5-15); BLOOD UREA NITROGEN 14 mg/dL (7-18); CARBON DIOXIDE 26 MMOL/L (21-32); CHLORIDE 106 MMOL/L (98-107); POTASSIUM 4.5 MMOL/L (3.5-5.1); SODIUM 144 MMOL/L (136-145)
[2020-03-15 21:48] LABS: ALANINE AMINOTRANSFERASE 28 U/L (12-78); ALBUMIN 3.9 G/DL (3.4-5.0); ALBUMIN/GLOBULIN RATIO 0.8 (1.0-2.7); ALKALINE PHOSPHATASE 73 U/L (46-116); ASPARTATE AMINO TRANSFERASE 34 U/L (15-37); BILIRUBIN,TOTAL 0.3 MG/DL (0.2-1.0); CREATINE KINASE 166 U/L (26-308); PHOSPHORUS 4.4 MG/DL (2.5-4.9)
[2020-03-16 00:06] VITALS: BP 104/70
[2020-03-16] MEDS ORDERED: LIBRIUM25 MG ORAL (00:38)
[2020-03-16] MEDS ORDERED: MULTIVITAMINS1 EAC8 ORAL (00:38)
[2020-03-16 00:45] VITALS: BP 109/76
--- NOTE | 2020-03-16 03:15 | Diagnostic Imaging Report ---
EXAM: XR Chest, 1 View CLINICAL HISTORY: DYSPNEA TECHNIQUE: Frontal view of the chest. COMPARISON: No relevant prior studies available. FINDINGS: Lungs: The lungs are grossly clear. Pleural space: No definite plain film evidence for pneumothorax. Heart: Unremarkable. No cardiomegaly. Mediastinum: Unremarkable. Bones/joints: Degenerative changes of the thoracic spine. Soft tissues: Clips are projected over the region of the GE junction. IMPRESSION: No definite plain film evidence for acute abnormality.
== END 2020-03-16 00:45 | disposition home or self-care (01) ==
LOC: EMR 20:39
DX: F10.230 Alcohol dependence with withdrawal, uncomplicated (principal); G40.909 Epilepsy, unspecified, not intractable, without status epilepticus; F41.9 Anxiety disorder, unspecified; R00.0 Tachycardia, unspecified
CPT/HCPCS: 36415; 71045; 80053; 82550; 82962; 83735; 84100; 85025; 85610; 93005; 96365; 96375; G0480; G0481; J7030; Z7502; 99284

== ENCOUNTER 2020-04-20 15:37 | Emergency (ER) | payer MEDICAID ==
[~2020-04-20] VITALS: Ht 177.8 cm; Wt 88.5 kg
[~2020-04-20 15:37] MED LIST changes: +MULTIVITAMINS1 EAC8 ORAL
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
[2020-04-20] MEDS ORDERED: Folic Acid 1 MG, Multivitamin - 12 Injection 10 ML, Thiamine HCl 100 MG in Sodium Chlor... IV ONE (16:00)
[2020-04-20] MEDS ORDERED: LORazepam Inj 2mg/ml 1ml IV ONE (16:00)
--- NOTE | 2020-04-20 16:00 | NUR ---
ED Nurse Note: Patient requested her mother by bed side. Patient's mom was notifyed of risks to get COVID 19, but she stated " I still wants come."
--- NOTE | 2020-04-20 16:05 | NUR ---
ED Nurse Note: IV line was established on left AC 20 ga, blood and urine specimens were collected sent to lab
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
[2020-04-20] MEDS ORDERED: Azithromycin 250mg tab ORAL ONE (16:15)
[2020-04-20] MEDS ORDERED: Lidocaine 1% MPF 10mg/ml 5ml INJ ONE (16:15)
[2020-04-20 16:18] VITALS: BP 129/91
--- NOTE | 2020-04-20 16:52 | NUR ---
CLAIRE WAS CALLED SPOKE W/ WIRE ROLLER 700 AND UNITS WILL BE DISPATCHED TO TAKE REPORT FROM PT
[2020-04-20 17:09] LABS: APPEARANCE,URINE SLIGHTLY CLOUDY; BILIRUBIN, URINE NEGATIVE (NEGATIVE); CALCIUM 8.2 MG/DL (8.5-10.1); CREATININE 1.2 MG/DL (0.55-1.30); GLUCOSE, URINE (UA) NEGATIVE (NEGATIVE); KETONES,URINE NEGATIVE (NEGATIVE); LEUKOCYTE ESTERASE ,URINE 3+ (NEGATIVE); NITRITE,URINE POSITIVE (NEGATIVE); PH,URINE 7 (4.5-8.0); POTASSIUM 4.1 MMOL/L (3.5-5.1); PROTEIN,URINE 3+ (NEGATIVE); UROBILINOGEN,URINE NORMAL MG/DL (0.0-1.0)
[2020-04-20 17:11] LABS: BASOPHILS % (AUTO) 1.9 % (0.0-2.0); EOSINOPHILS % (AUTO) 0.5 % (0.0-3.0); HEMATOCRIT 42.9 % (37.0-47.0); HEMOGLOBIN 13.7 G/DL (12.0-16.0); LYMPHOCYTES % (AUTO) 19.5 % (20.0-45.0); MEAN CORPUSCULAR VOLUME 101 FL (80-99); MONOCYTES % (AUTO) 11.6 % (1.0-10.0); NEUTROPHILS % (AUTO) 66.5 % (45.0-75.0); PLATELET COUNT 191 K/UL (150-450); RED BLOOD COUNT 4.25 M/UL (4.20-5.40); RED CELL DISTRIBUTION WIDTH 15.4 % (11.6-14.8); WHITE BLOOD COUNT 5.5 K/UL (4.8-10.8)
[2020-04-20 17:12] LABS: ALBUMIN 3.6 G/DL (3.4-5.0); ALBUMIN/GLOBULIN RATIO 0.8 (1.0-2.7); BILIRUBIN,TOTAL 0.4 MG/DL (0.2-1.0)
[2020-04-20 17:15] LABS: COLOR,URINE YELLOW
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
[2020-04-20] MEDS ORDERED: PHENAZOPYRIDIN100 MG ORAL (17:29)
[2020-04-20] MEDS ORDERED: NITROFURANTOIN100 M2 ORAL (17:29)
[2020-04-20] MEDS ORDERED: LIBRIUM10 MG ORAL (17:29)
[2020-04-20] MEDS ORDERED: Phenazopyridine 200mg tab ORAL ONE (17:30)
[2020-04-20] MEDS ORDERED: cefTRIAXone 1 GM in NS 55 ML IVPB ONE (17:30)
--- NOTE | 2020-04-20 17:57 | NUR ---
ED Nurse Note: sandwich and juice were provided
--- NOTE | 2020-04-20 19:05 | NUR ---
ED Nurse Note: Report received from ANDREW Stauffer. Pt resting in bed, NAD.
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
--- NOTE | 2020-04-20 19:40 | NUR ---
ED Nurse Note: Patient is c/o head pain. She is requesting tylenol; ERMD notified.
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
[2020-04-20 20:00] VITALS: BP 132/85
--- NOTE | 2020-04-20 20:00 | NUR ---
ER DISCHARGE NOTE: Patient is cleared to be discharged per ERMD, pt is aox4, on room air, with stable vital signs. pt was given dc and prescription instructions, pt was able to verbalize understanding, pt id band and iv site removed without complications. pt is able to ambulate with steady gait. pt took all belongings.
== END 2020-04-20 20:00 | disposition home or self-care (01) ==
LOC: EMR 16:10
DX: F10.10 Alcohol abuse, uncomplicated (principal); Z20.2 Contact with and (suspected) exposure to infections with a predominantly sexual mode of transmission; N39.0 Urinary tract infection, site not specified; S02.2XXA Fracture of nasal bones, initial encounter for closed fracture; T76.21XA Adult sexual abuse, suspected, initial encounter; S00.12XA Contusion of left eyelid and periocular area, initial encounter; S00.11XA Contusion of right eyelid and periocular area, initial encounter; X58.XXXA Exposure to other specified factors, initial encounter; Y92.9 Unspecified place or not applicable; G40.909 Epilepsy, unspecified, not intractable, without status epilepticus
CPT/HCPCS: 36415; 70450; 70486; 80053; 80307; 81003; 81025; 83735; 85025; 87086; 87181; 96361; 96365; 96372; 96375; J0696; J2405; J3490; J7030; Q0144; Z7502; 99284